=== PATIENT | male | born 1960 | race Caucasian/White ===

== ENCOUNTER 2018-04-01 10:57 | Outpatient (REF) | payer BC, SELFPAY | END 2018-04-01 11:17 | LOC: LBN 10:57 | PROVIDERS: PCP Family Medicine; Visit Provider Family Medicine | DX: J06.9 Acute upper respiratory infection, unspecified (principal) | CPT/HCPCS: 87449 ==

== ENCOUNTER 2020-03-09 07:38 | Emergency (ER) | payer BC, SELFPAY ==
[2020-03-09 07:51] VITALS: BP 126/63; PULSE 86; RESP 16; TEMP 36.4; O2SAT 98
--- NOTE | 2020-03-09 08:10 | W.ED.GENAD ---
Discharge Plan Disposition Patient Disposition: HOME Condition: Stable Discharge Details Clinical Impression: Lumbar strain Primary Care Provider: Luis Miguel Flood ED Provider: Brea Bautista Home Meds and New Rx's Prescriptions: New methocarbamol 500 mg tablet 500 mg PO Q6H PRN (Reason: muscle spasm) Qty: 14 RF: 0 Continued sildenafil 50 mg tablet 50 mg PO DAILY PRN (Reason: sexual activity) Qty: 10 RF: 3 tamsulosin 0.4 mg capsule 0.4 mg PO DAILY Qty: 90 RF: 3 triamcinolone acetonide 0.05 % ointment 1 applic topical BID PRN (Reason: pruritis) Qty: 430 RF: 2 Discharge Instructions Instructions: Low Back Strain (ED) Additional Instructions: Alternate ice and heat to the affected area(s) several times daily for 20 minutes at a time. Alternate tylenol and motrin as needed and directed for pain. Take the methocarbamol and oxycodone as needed and directed for pain not relieved with Tylenol Motrin. Follow-up with your primary care doctor in 1 week. Return to the emergency department with any worsening or new concerning symptoms. 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 Denies cauda equina symptoms. He has not taken anything for pain. His drove him to the ER. He is hemodynamically stable and appears nontoxic. He has no midline or paraspinal tenderness to palpation but pain is reproducible with movement. No focal deficits. Neurovascular intact. As he has no midline tenderness and denies feeling any sensation of popping or cracking, doubt vertebral fracture. Patient offered x-ray but declined stating he feels this is more of a muscle strain. Will give a shot of Toradol, Valium p.o. and oxycodone p.o. and send home with methocarbamol a premade bottle of oxycodone. Patient advised on importance of alternating Tylenol and Motrin, ice and heat. He requested a work note to return Sunday. Advised to follow up with the primary care doctor for re-evaluation. Usual and customary return precautions given prior to discharge. Medical Records Medical records reviewed: Yes I reviewed the patient's medical records. HPI General Mode of arrival: ambulatory. Date/Time Provider Initiated Documentation: 03/09/20 08:03. Limitations to Documentation: no limitations. Information obtained by: patient. HPI Narrative: Patient is a 60-year-old male presents for lower back pain since bending over in shower yesterday. He denies feeling any sensation of a pop or crack and states he feels like he pulled a muscle. Patient states the pain is in his mid back with radiation to his left side. He denies any radiation of pain into his buttock or legs. He states the pain is worse with movement or moving from sitting to standing position. She denies any bowel or bladder incontinence, saddle anesthesia, leg pain, weakness or numbness. He took Advil last night with some relief. He states he was unable to sleep due to discomfort with position of the bed. His drove him here to the ER. Related Data Home Medications Medication Instructions Recorded Confirmed sildenafil 50 mg tablet 50 mg PO DAILY PRN #10 tab 03/25/18 03/09/20 tamsulosin 0.4 mg capsule 0.4 mg PO DAILY #90 cap 05/23/19 03/09/20 triamcinolone acetonide 0.05 % 1 applic TOPICAL BID PRN #430 g 01/09/20 03/09/20 topical ointment methocarbamol 500 mg PO Q6H PRN #14 tab 03/09/20 Previous Rx's Medication Instructions Recorded sildenafil 50 mg tablet 50 mg PO DAILY PRN #10 tab 03/25/18 tamsulosin 0.4 mg capsule 0.4 mg PO DAILY #90 cap 05/23/19 triamcinolone acetonide 0.05 % 1 applic TOPICAL BID PRN #430 g 01/09/20 topical ointment methocarbamol 500 mg PO Q6H PRN #14 tab 03/09/20 Allergies Allergy/AdvReac Type Severity Reaction Status Date / Time No Known Allergies Allergy Verified 03/09/20 07:55 General Stated Complaint: Nk/Back Pain RALPH: 3 Review of Systems All systems reviewed & are unremarkable except as noted in HPI and below Constitutional Constitutional: Reports as per HPI, Denies chills and Denies fever(s) Eyes Eyes: Denies blurry vision ENT Ears, Nose, Mouth, and Throat: Denies dizziness, Denies sore throat and Denies throat swelling Cardiovascular Cardiovascular: Denies chest pain and Denies dyspnea Respiratory Respiratory: Denies cough and Denies dyspnea Gastrointestinal Gastrointestinal: Denies abdominal pain, Denies diarrhea and Denies vomiting Genitourinary Genitourinary: Denies hematuria and Denies dysuria Musculoskeletal Musculoskeletal: Reports back pain and Denies numbness Integumentary/Breasts Skin/Breast: Denies lesions and Denies rash Neurologic Neurologic: Denies dizziness, Denies localized weakness and Denies numbness Allergic/Immunologic Allergic/Immunologic: Denies throat swelling [facility] Medical History (Updated 03/09/20 @ 08:27 by Brea Bautista DO) Erectile dysfunction (07/12/17) Lower urinary tract symptoms (07/12/17) Surgical History Repair of inguinal hernia Bilateral Vasectomy Family History Paternal Grandfather Neoplasm Lung Mother Asthma Father Essential hypertension Other Hyperlipidemia Prostate cancer Social History (Updated 05/23/19 @ 13:30 by Lakisha Carmona LPN) Smoking/Tobacco Use Status: Never Smoking risk assessment performed?: Yes Alcohol Intake: never Drug use: Never Substance use type: does not use Household members: spouse Housing: house Number of Children: 2 current occupation: works at [employer] Current gender identity: male What is your relationship status?: Panel score (0-1 are the most socially isolated patients): 1 What type of physical activity do you participate in: walking Frequency: daily Seatbelt use: always Drive intox or ride w/intox armored car guard and driver: No Working smoke detector in home: Yes Fire extinguisher in home: Yes Carbon monox detector in home: Yes Do you feel safe at home: Yes Do you feel safe in your relationship?: No Exam Const General: cooperative, healthy appearing and no acute distress HENVA Head: normal to inspection Face and sinus: normal facial exam Eyes General: appearance normal, both eyes and all related structures EOM: EOM intact bilaterally Neck Neck: normal visual inspection and No submandibular swelling Lymphatic: no lymphadenopathy noted Chest Chest: normal inspection of the chest and no tenderness Resp Effort & Inspection: normal respiratory effort and able to speak in complete sentences Auscultation: clear to auscultation bilaterally Cardio Rate: regular rate Rhythm: regular rhythm GI Inspection: normal to inspection Palpation: soft, not firm, not rigid and nontender Auscultation: normal bowel sounds Back/Spine/Pelvis Thoracic/Lumbar Spine: thoracic and lumbar spine normal to inspection and straight leg raise negative bilaterally Pelvis: no pain with anterior-posterior compression Skin General skin exam: no rashes or lesions noted Neuro General: patient alert, patient awake and patient oriented x3 Cognition: normal cognition Speech: speech normal Motor: muscle tone normal throughout and strength 5/5 throughout Sensory Exam: no sensory deficits noted DTR's: Rt Patellar: 1+, Lt Patellar: 1+, Rt Ankle: 1+ and Lt Ankle: 1+ Plantar Reflexes: Equivocal: bilateral (negative babinski b/l) Extrem General: normal to inspection, full ROM, capillary refill normal, no calf tenderness bilaterally and no edema Other: B/L DP/PT pulses intact. Psych Appearance: grossly normal Mental Status: mental status grossly normal Speech and Movement: speech and movement normal Affect: normal affect Course Vital Signs Vital signs: Vital Signs Temperature 97.5 F L 03/09/20 07:51 Pulse 86 03/09/20 07:51 Respiratory Rate 16 03/09/20 07:51 Blood Pressure 126/63 03/09/20 07:51 Pulse Oximetry 98 03/09/20 07:51 Temperature 97.5 F L 03/09/20 07:51 Temperature Source Skin 03/09/20 07:51 Pulse 86 03/09/20 07:51 Respiratory Rate 16 03/09/20 07:51 Respiratory Effort Non-Labored 03/09/20 07:51 Blood Pressure 126/63 03/09/20 07:51 Pulse Oximetry 98 03/09/20 07:51 Oxygen Delivery Method Room Air 03/09/20 07:51 Oxygen Flow Rate 0 03/09/20 07:51 Pain Level 9 03/09/20 07:51
[2020-03-09] MEDS: Ketorolac 60 MG/2 ML VIAL IM (08:34)
[2020-03-09] MEDS: diazePAM 5 MG TAB PO (08:35)
[2020-03-09] MEDS: oxyCODONE 5 MG TAB PO (08:35)
== END 2020-03-09 08:56 | disposition home or self-care (01) ==
PROVIDERS: Emergency Provider Physician Assistant; PCP Family Medicine
DX: S39.012A Strain of muscle, fascia and tendon of lower back, initial encounter (principal); X50.9XXA Other and unspecified overexertion or strenuous movements or postures, initial encounter
CPT/HCPCS: 96372; 99284; 99283; J1885

== ENCOUNTER 2022-03-06 02:50 | Outpatient (CLI) | payer BC, SELFPAY ==
[2022-03-06 13:10] LABS: ALT 29 U/L (16-63); AST 26 U/L (15-37); Albumin 3.8 g/dL (3.4-5.0); Alkaline Phosphatase 57 U/L (46-116); Anion Gap 5.1 mmol/L (3-11); BUN 22 mg/dL (7-18); Bilirubin, Total 0.4 mg/dL (0.2-1.0); CO2 28.9 mmol/L (21.0-32.0); CREATININE 1.2 mg/dL (0.70-1.30); Calcium 8.8 mg/dL (8.5-10.1); Chloride 104 mmol/L (98-107); Glucose 109 mg/dL (74-106); Potassium 4.1 mmol/L (3.5-5.1); Sodium 138 mmol/L (136-145); Total Protein 7.2 g/dL (6.4-8.2)
== END 2022-03-06 02:51 | disposition home or self-care (01) ==
PROVIDERS: PCP Family Medicine; Visit Provider Family Medicine
DX: N52.9 Male erectile dysfunction, unspecified (principal)
CPT/HCPCS: 36415; 80053

== ENCOUNTER 2023-12-11 02:24 | Outpatient (CLI) | payer BC, SELFPAY ==
[2023-12-11 07:32] LABS: Calculated LDL 93 mg/dL (<100); Cholesterol 170 mg/dL (<200); HDL Cholesterol 63 mg/dL (40-60); Triglyceride 73 mg/dL (<150)
== END 2023-12-11 02:25 | disposition home or self-care (01) ==
PROVIDERS: PCP Family Medicine; Visit Provider Family Medicine
DX: Z13.6 Encounter for screening for cardiovascular disorders (principal)
CPT/HCPCS: 36415; 80061

== ENCOUNTER 2024-03-06 10:16 | Outpatient (CLI) | payer BC, SELFPAY ==
--- NOTE | 2024-03-06 10:51 | DI.RAD_ITS ---
Exam(s) XR CHEST 2V PA LATERAL EXAM: XR CHEST 2V PA LATERAL CLINICAL HISTORY: URI J06.9 TECHNIQUE: 2D digital imaging was performed of the chest. Two images were obtained. PA and lateral views were obtained. COMPARISON: No exams were available for comparison FINDINGS: MEDIASTINUM: Normal. HEART: Normal. PULMONARY VASCULATURE: Normal. LUNGS: No focal consolidating infiltrates. PLEURAL SPACE: No pleural effusion or pneumothorax. BONE:Within normal limits for the patient's age. OTHER FINDINGS:Normal. IMPRESSION: No acute pulmonary findings. DATA REPOSITORY: RADIATION DOSE DELIVERED:
== END 2024-03-06 10:36 ==
PROVIDERS: PCP Family Medicine; Visit Provider Physician Assistant Medical
DX: J02.9 Acute pharyngitis, unspecified (principal)
CPT/HCPCS: 71046